=== PATIENT | female | born 1970 | race Caucasian/White ===

== ENCOUNTER → 2018-01-29 | Outpatient (CLI) | payer BC ==
--- NOTE | 2018-01-30 10:59 | MM ---
Reason for exam: screening (asymptomatic). Last mammogram was performed 2 years and 4 months ago. History: Patient is postmenopausal and had first child at age 35. Family history of breast cancer in maternal grandmother at age 70. Took hormonal contraceptives for 22 years beginning at age 16. Physical Findings: A clinical breast exam by your physician is recommended on an annual basis and results should be correlated with mammographic findings. MG 3D Screening Mammo W/Cad Bilateral CC and MLO view(s) were taken. Prior study comparison: September 28, 2015, bilateral MG diagnostic mammo w CAD PROMISE. August 04, 2014, left breast MG work up mamm w CAD LT. The breast tissue is heterogeneously dense. This may lower the sensitivity of mammography. There is no discrete abnormality. No significant changes when compared with prior studies. ASSESSMENT: Negative, BI-RAD 1 RECOMMENDATION: Routine screening mammogram of both breasts in 1 year.
== END ==
LOC: RADMAMWWP 09:58
PROVIDERS: ATTEND Family Medicine
DX: Z12.31 Encounter for screening mammogram for malignant neoplasm of breast (principal)
CPT/HCPCS: 77063; 77067

== ENCOUNTER 2019-07-12 10:02 | Observation (INO) | payer BC ==
[2019-07-12] MEDS ORDERED: ASPIRIN 81 MG PO STA (10:40)
--- NOTE | 2019-07-12 10:44 | ED ---
General Adult HPI - General Chief complaint: Chest Pain Stated complaint: chest pain/sent by pcp Time Seen by Provider: 07/12/19 10:26 Source: patient, RN notes reviewed, old records reviewed Mode of arrival: wheelchair Limitations: no limitations - History of Present Illness Initial comments: 49-year-old female patient past medical history significant for mitral valve prolapse from CDU acute complaint chest pain. Patient process exam this morning she woke up with a substernal pressure. Patient also reports that this chest pain is pleuritic in nature and that it hurts and she takes a deep breath. Patient reports that the chest pain has resolved. She still some discomfort with a deep breath. Denies any shortness of breath. At time of evaluation pain has resolved. Patient denies any other complaints at this time. Systemic: Pt denies fatigue, fever/chills, rash. Pt denies weakness, night sweats, weight loss. Neuro: Pt denies headache, visual disturbances, syncope or pre-syncope. HEENT: Pt denies ocular discharge or irritation, otalgia, rhinorrhea, pharyngitis or notable lymphadenopathy. Cardiopulmonary: Pt denies SOB, heart palpitations, dyspnea on exertion. Abdominal/GI: Pt denies abdominal pain, n/v/d. : Pt denies dysuria, burning w/ urination, frequency/urgency. Denies new onset urinary or bowel incontinence. MSK: Pt denies myalgia, loss of strength or function in extremities. Neuro: Pt denies new onset weakness, paresthesias. - Related Data Home Medications Medication Instructions Recorded Confirmed Cetirizine HCl [Zyrtec] 10 mg PO DAILY 11/10/14 07/12/19 FLUoxetine HCL [Fluoxetine HCl] 20 mg PO QAM 11/10/14 07/12/19 SUMAtriptan SUCCINATE [Sumatriptan 100 mg PO DIRECTED PRN 11/10/14 07/12/19 Succinate] Topiramate 100 mg PO BID 11/10/14 07/12/19 Biotin 10,000 mcg PO DAILY 07/12/19 07/12/19 Erenumab-Aooe [Aimovig 70 mg SQ Q30D 07/12/19 07/12/19 Autoinjector] L.acidoph,Paracasei, B.lactis 1 cap PO DAILY 06/01/20 06/01/20 [Probiotic] Levothyroxine Sodium [Synthroid] 50 mcg PO DAILY 07/12/19 07/12/19 Linaclotide [Linzess] 290 mcg PO DAILY 07/12/19 07/12/19 Ondansetron [Zofran] 8 mg PO BID PRN 07/12/19 07/12/19 Allergies Allergy/AdvReac Type Severity Reaction Status Date / Time No Known Allergies Allergy Verified 07/12/19 10:16 Review of Systems ROS Statement: Those systems with pertinent positive or pertinent negative responses have been documented in the HPI. ROS Other: All systems not noted in ROS Statement are negative. Past Medical History Past Medical History: Mitral Valve Prolapse (MVP) Additional Past Medical History / Comment(s): MIGRAINES,CONSTIPATION,URINARY LEAKAGE,HX POLYPS History of Any Multi-Drug Resistant Organisms: None Reported Past Surgical History: Adenoidectomy Additional Past Surgical History / Comment(s): TURBINATE REDUCTION,IUD PRESENT, COLONOSCOPY Past Anesthesia/Blood Transfusion Reactions: Motion Sickness Smoking Status: Never smoker Past Alcohol Use History: None Reported - Past Family History Mother Additional Family Medical History / Comment(s): CROHN'S/COLITIS,ARTHRITIS,EMPHYSEMA Father Additional Family Medical History / Comment(s): LIVER DISEASE,HEART DISEASE-MULT STENTS,PACEMAKER Brother(s) Family Medical History: Diabetes Mellitus Additional Family Medical History / Comment(s): IBS General Exam - General Exam Comments Initial Comments: Constitutional: NAD, AOX3, Pt has pleasant affect. HEENT: NC/AT, trachea midline, neck supple. External ears appear normal, without discharge. Mucous membranes moist. Eyes PERRLA. There is no scleral icterus. No pallor noted. Cardiopulmonary: RRR, no murmurs, rubs or gallops, no JVD noted. Lungs CTAB in anterior and posterior vang. No peripheral edema. Abdominal exam: Abdomen soft and non-distended. Abdomen non-tender to palpation in all 4 quadrants. Bowel sounds active in LLQ. No hepatosplenomegaly. No ecchymosis Neuro: CN II-XII grossly intact. No nuchal rigidity. No raccon eyes, no yañez sign, no hemotympanum. MSK: No posterior calf tenderness bilaterally, homans sign negative bilaterally. Posterior tibialis and radial pulse +2 bilaterally. Sensation intact in upper a nd lower extremities. Full active ROM in upper and lower extremities, 5/5 stregnth. Limitations: no limitations Course Vital Signs 07/12/19 07/12/19 07/12/19 10:13 10:25 10:30 Temperature 98.2 F Pulse Rate 81 77 Respiratory 16 22 23 Rate Blood Pressure 148/98 142/102 O2 Sat by Pulse 98 97 95 Oximetry 07/12/19 07/12/19 07/12/19 10:40 10:50 11:00 Temperature Pulse Rate 70 73 73 Respiratory 21 21 20 Rate Blood Pressure 142/89 142/89 142/89 O2 Sat by Pulse 98 97 96 Oximetry 07/12/19 07/12/19 07/12/19 11:10 11:20 11:30 Temperature Pulse Rate 79 68 69 Respiratory 20 17 17 Rate Blood Pressure 141/95 141/95 141/95 O2 Sat by Pulse 96 99 97 Oximetry 07/12/19 07/12/19 07/12/19 11:40 13:30 14:00 Temperature Pulse Rate 70 73 72 Respiratory 11 L 24 21 Rate Blood Pressure 148/92 138/97 O2 Sat by Pulse 98 99 98 Oximetry 07/12/19 07/12/19 07/12/19 14:30 15:00 15:16 Temperature Pulse Rate 84 77 77 Respiratory 9 L 20 20 Rate Blood Pressure 145/89 155/95 155/95 O2 Sat by Pulse 98 98 Oximetry Medical Decision Making - Medical Decision Making 49-year-old female patient past medical history significant for mitral valve prolapse from CDU acute complaint chest pain. Patient process exam this morning she woke up with a substernal pressure. Patient also reports that this chest pain is pleuritic in nature and that it hurts and she takes a deep breath. Patient reports that the chest pain has resolved. She still some discomfort w ith a deep breath. Denies any shortness of breath. At time of evaluation pain has resolved. Patient denies any other complaints at this time. Patient vital signs are stable, afebrile. Physical exam also acute pathology. Laboratory investigations are unremarkable. D-dimer is negative. Troponin is negative. Patient didn't have a brief episode of some chest pressure EKG was repeated and is unchanged. Patient is pain-free at time of admission. Will be admitted for serial troponins and cardiology evaluation. Dr. Gonzales accepts patient. Case discussed with Dr. Castro. - Lab Data Result diagrams: 07/12/19 11:07 07/12/19 11:07 Lab Results 07/12/19 07/12/19 07/12/19 Range/Units 11:07 11:07 11:07 WBC 9.1 (3.8-10.6) k/uL RBC 4.76 (3.80-5.40) m/uL Hgb 14.1 (11.4-16.0) gm/dL Hct 44.1 (34.0-46.0) % MCV 92.7 (80.0-100.0) fL MCH 29.6 (25.0-35.0) pg MCHC 31.9 (31.0-37.0) g/dL RDW 12.0 (11.5-15.5) % Plt Count 207 (150-450) k/uL Neutrophils % 72 % Lymphocytes % 19 % Monocytes % 6 % Eosinophils % 2 % Basophils % 0 % Neutrophils # 6.6 (1.3-7.7) k/uL Lymphocytes # 1.7 (1.0-4.8) k/uL Monocytes # 0.5 (0-1.0) k/uL Eosinophils # 0.2 (0-0.7) k/uL Basophils # 0.0 (0-0.2) k/uL PT 9.6 (9.0-12.0) sec INR 0.9 (<1.2) APTT 23.9 (22.0-30.0) sec D-Dimer 0.32 (<0.60) mg/L FEU Sodium 139 (137-145) mmol/L Potassium 5.0 (3.5-5.1) mmol/L Chloride 109 H (98-107) mmol/L Carbon Dioxide 23 (22-30) mmol/L Anion Gap 7 mmol/L BUN 11 (7-17) mg/dL Creatinine 0.86 (0.52-1.04) mg/dL Est GFR (CKD-EPI)AfAm >90 (>60 ml/min/1.73 sqM) Est GFR (CKD-EPI)NonAf 79 (>60 ml/min/1.73 sqM) Glucose 81 (74-99) mg/dL Calcium 9.4 (8.4-10.2) mg/dL Magnesium 2.1 (1.6-2.3) mg/dL Total Bilirubin 0.4 (0.2-1.3) mg/dL AST 24 (14-36) U/L ALT 15 (4-34) U/L Alkaline Phosphatase 70 (38-126) U/L Troponin I (0.000-0.034) ng/mL NT-Pro-B Natriuret Pep pg/mL Total Protein 7.4 (6.3-8.2) g/dL Albumin 4.3 (3.5-5.0) g/dL 07/12/19 07/12/19 Range/Units 11:07 11:07 WBC (3.8-10.6) k/uL RBC (3.80-5.40) m/uL Hgb (11.4-16.0) gm/dL Hct (34.0-46.0) % MCV (80.0-100.0) fL MCH (25.0-35.0) pg MCHC (31.0-37.0) g/dL RDW (11.5-15.5) % Plt Count (150-450) k/uL Neutrophils % % Lymphocytes % % Monocytes % % Eosinophils % % Basophils % % Neutrophils # (1.3-7.7) k/uL Lymphocytes # (1.0-4.8) k/uL Monocytes # (0-1.0) k/uL Eosinophils # (0-0.7) k/uL Basophils # (0-0.2) k/uL PT (9.0-12.0) sec INR (<1.2) APTT (22.0-30.0) sec D-Dimer (<0.60) mg/L FEU Sodium (137-145) mmol/L Potassium (3.5-5.1) mmol/L Chloride (98-107) mmol/L Carbon Dioxide (22-30) mmol/L Anion Gap mmol/L BUN (7-17) mg/dL Creatinine (0.52-1.04) mg/dL Est GFR (CKD-EPI)AfAm (>60 ml/min/1.73 sqM) Est GFR (CKD-EPI)NonAf (>60 ml/min/1.73 sqM) Glucose (74-99) mg/dL Calcium (8.4-10.2) mg/dL Magnesium (1.6-2.3) mg/dL Total Bilirubin (0.2-1.3) mg/dL AST (14-36) U/L ALT (4-34) U/L Alkaline Phosphatase (38-126) U/L Troponin I <0.012 (0.000-0.034) ng/mL NT-Pro-B Natriuret Pep 45 pg/mL Total Protein (6.3-8.2) g/dL Albumin (3.5-5.0) g/dL - EKG Data -: EKG Interpreted by Me (and Dr. Castro ) EKG Comments: 1) ventricular rate 73, when necessary: 64, QRS 82, QT/QTc 4/445. NSR, normal EKG, no concern for acute ischemia. 2) ventricular rate 69, UT interval 186, QRS 80, QT/QTc 48/437. NSR, normal EKG, no concern for acute ischemia. Disposition Clinical Impression: Chest pain Disposition: ADMITTED IP TO THIS HOSP Condition: Fair Is patient prescribed a controlled substance at d/c from ED?: No Referrals: Toan Gomez MD [Primary Care Provider] - 1-2 days
[2019-07-12 11:26] LABS: Basophils % (A) 0 %; Eosinophils # (A) 0.2 k/uL (0-0.7); Eosinophils % (A) 2 %; HCT 44.1 % (34.0-46.0); HGB 14.1 gm/dL (11.4-16.0); Lymphocytes # (A) 1.7 k/uL (1.0-4.8); Lymphocytes % (A) 19 %; MCH 29.6 pg (25.0-35.0); MCHC 31.9 g/dL (31.0-37.0); MCV 92.7 fL (80.0-100.0); Mean Platelet Volume 8.8; Monocytes # (A) 0.5 k/uL (0-1.0); Monocytes % (A) 6 %; Neutrophils # (A) 6.6 k/uL (1.3-7.7); Neutrophils % (A) 72 %; Platelet Count 207 k/uL (150-450); RBC 4.76 m/uL (3.80-5.40); WBC 9.1 k/uL (3.8-10.6)
[2019-07-12 11:42] LABS: ALT 15 U/L (4-34); AST 24 U/L (14-36); African American GFR (CKD) >90 (>60 ml/min/1.73 sqM); Albumin 4.3 g/dL (3.5-5.0); Alkaline Phosphatase 70 U/L (38-126); Anion Gap 7 mmol/L; Blood Urea Nitrogen 11 mg/dL (7-17); Calcium 9.4 mg/dL (8.4-10.2); Carbon Dioxide 23 mmol/L (22-30); Chloride 109 mmol/L (98-107); Glucose 81 mg/dL (74-99); Magnesium 2.1 mg/dL (1.6-2.3); Non-African American GFR(CKD) 79 (>60 ml/min/1.73 sqM); Sodium 139 mmol/L (137-145); Total Bilirubin 0.4 mg/dL (0.2-1.3); Total Protein 7.4 g/dL (6.3-8.2)
--- NOTE | 2019-07-12 11:53 | XR ---
EXAMINATION TYPE: XR chest 2V DATE OF EXAM: 07/12/2019 COMPARISON: NONE HISTORY: Chest pain since this morning. TECHNIQUE: Frontal and lateral views of the chest are obtained. FINDINGS: Overlying EKG leads are seen. There is no focal air space opacity, pleural effusion, or pne umothorax seen. The cardiac silhouette size is within normal limits. The osseous structures are in tact. IMPRESSION: No acute process.
[2019-07-12 11:54] LABS: D-Dimer 0.32 mg/L FEU (<0.60); INR 0.9 (<1.2); Partial Thromboplastin Time 23.9 sec (22.0-30.0); Prothrombin Time 9.6 sec (9.0-12.0)
[2019-07-12] MEDS ORDERED: NITROGLYCERIN SL TABS 0.4 MG TAB SUBLINGUAL STA (13:23)
[2019-07-12] MEDS ORDERED: NITROGLYCERIN SL TABS 0.4 MG TAB SUBLINGUAL PRN (15:36)
[2019-07-12] MEDS ORDERED: SUMAtriptan SUCCINATE 50 MG TAB PO PRN (17:11)
[2019-07-12] MEDS ORDERED: ONDANSETRON 4 MG TAB PO PRN (17:11)
[2019-07-12] MEDS: TOPIRAMATE 100 MG TAB PO SCH (21:11)
--- NOTE | 2019-07-12 21:25 | P.HPIM ---
History of Present Illness H&P Date: 07/12/19 Chief Complaint: Chest pressure History of presenting open: This is a very pleasant 49-year-old patient of Dr. Gomez. Chronic stable medical conditions include much valve prolapse, chronic urinary incontinence, depression, hypothyroid with goiter. Patient woke up this morning and felt a pressure-like sensation all across the upper chest. It went up to her neck. Is present most of the day. No fever no chills. No dizziness no lightheadedness. No shortness of breath. No perspiration. Presented here to rule out a cardiac cause. Denied any swelling of the legs. Initially was having slight difficulty taking a deep breath. No prior cardiac history. Patient fairly active. Review of systems: GEN.: None EYES: None HEENT: Goiter NECK: Goiter RESPIRATORY: None CARDIOVASCULAR: As above GASTROINTESTINAL: Reflux] GENITOURINARY: None MUSCULOSKELETAL: None LYMPHATICS: None HEMATOLOGICAL: None PSYCHIATRY: Anxious NEUROLOGICAL: None Past medical history to include: mitral valve prolapse, urinary incontinence, depression, hypothyroid, goiter Social history: Does not smoke or drink alcohol. . Homemaker Physical examination: VITAL SIGNS: 97, 79, 18, 1 6479, 95% on room air GENERAL: BMI is 26, laying in bed, comfortable. EYES: Pupils equal. Conjunctiva normal. HEENT: External appearance of nose and ears normal, oral cavity grossly normal. NECK: JVD not raised; masses not palpable. HEART: First and second heart sounds are normal; no edema. LUNGS: Respiratory rate normal; clear to auscultation. ABDOMEN: Soft, nontender, liver spleen not palpable, no masses palpable. PSYCH: Alert and oriented x3; mood and affect normal. MUSCULOSKELETAL: No local tenderness, not reproducible NEUROLOGICAL: Cranial nerves grossly intact; no facial asymmetry, power and sensation grossly intact. LYMPHATICS: No lymph nodes palpable in the axilla and neck INVESTIGATIONS, reviewed in the clinical context: White count 9.1 hemoglobin 14.1 platelets 207 potassium 5 creatinine 0.86 Troponin I 2 negative proBNP 45 d-dimer 0.3 to EKG tracing personally reviewed by me-normal sinus rhythm Chest x-ray film personally reviewed by me-lung vang clear Assessment: -This patient presents with upper chest pressure. Other cardiac symptoms. EKG is unremarkable with normal troponins. Somewhat atypical for cardiac but needs to rule out the same. Patient is has a fairly good exercise tolerance. -Chronic urinary incontinence -Depression otherwise specified -Hypothyroid with goiter Plan: Patient will need a stress test tomorrow. Home medications can be resumed. Care was discussed with the patient question were answered. Cardiology is consulted. Past Medical History Past Medical History: Mitral Valve Prolapse (MVP) Additional Past Medical History / Comment(s): MIGRAINES,CONSTIPATION,URINARY LEAKAGE,HX POLYPS History of Any Multi-Drug Resistant Organisms: None Reported Past Surgical History: Adenoidectomy Additional Past Surgical History / Comment(s): TURBINATE REDUCTION,IUD PRESENT, COLONOSCOPY Past Anesthesia/Blood Transfusion Reactions: Motion Sickness Past Psychological History: Depression Smoking Status: Never smoker Past Alcohol Use History: None Reported Past Drug Use History: None Reported - Past Family History Mother Additional Family Medical History / Comment(s): CROHN'S/COLITIS,ARTHRITIS,EMPHYSEMA Father Additional Family Medical History / Comment(s): LIVER DISEASE,HEART DISEASE-MULT STENTS,PACEMAKER Brother(s) Family Medical History: Diabetes Mellitus Additional Family Medical History / Comment(s): IBS Medications and Allergies Home Medications Medication Instructions Recorded Confirmed Type Cetirizine HCl [Zyrtec] 10 mg PO DAILY 11/10/14 07/12/19 History FLUoxetine HCL [Fluoxetine HCl] 20 mg PO QAM 11/10/14 07/12/19 History SUMAtriptan SUCCINATE [Sumatriptan 100 mg PO DIRECTED PRN 11/10/14 07/12/19 History Succinate] Topiramate 100 mg PO BID 11/10/14 07/12/19 History Biotin 10,000 mcg PO DAILY 07/12/19 07/12/19 History Erenumab-Aooe [Aimovig 70 mg SQ Q30D 07/12/19 07/12/19 History Autoinjector] L.acidoph,Paracasei, B.lactis 1 cap PO DAILY 07/12/19 07/12/19 History [Probiotic] Levothyroxine Sodium [Synthroid] 50 mcg PO DAILY 07/12/19 07/12/19 History Linaclotide [Linzess] 290 mcg PO DAILY 07/12/19 07/12/19 History Ondansetron [Zofran] 8 mg PO BID PRN 07/12/19 07/12/19 History Allergies Allergy/AdvReac Type Severity Reaction Status Date / Time No Known Allergies Allergy Verified 07/12/19 10:16 Physical Exam Vitals: Vital Signs Temp Pulse Pulse Resp BP BP Pulse Ox 07/12/19 19:40 97.0 F L 79 18 164/79 95 07/12/19 17:00 98.7 F 81 18 139/86 98 07/12/19 16:37 98.2 F 77 20 155/95 98 07/12/19 15:16 77 20 155/95 98 07/12/19 15:00 77 20 155/95 98 07/12/19 14:30 84 9 L 145/89 07/12/19 14:00 72 21 138/97 98 07/12/19 13:30 73 24 148/92 99 07/12/19 11:40 70 11 L 98 07/12/19 11:30 69 17 141/95 97 07/12/19 11:20 68 17 141/95 99 07/12/19 11:10 79 20 141/95 96 07/12/19 11:00 73 20 142/89 96 07/12/19 10:50 73 21 142/89 97 07/12/19 10:40 70 21 142/89 98 07/12/19 10:30 77 23 142/102 95 07/12/19 10:25 22 97 07/12/19 10:13 98.2 F 81 16 148/98 98 Intake and Output 07/12/19 07/12/19 07/12/19 06:59 14:59 22:59 Other: Weight 66.633 kg 66.633 kg Results CBC & Chem 7: 07/12/19 11:07 07/12/19 11:07 Labs: Abnormal Lab Results - Last 24 Hours (Table) 07/12/19 Range/Units 11:07 Chloride 109 H (98-107) mmol/L Thrombosis Risk Factor Assmnt - Choose All That Apply Any of the Below Risk Factors Present?: Yes Each Factor Represents 1 point: Obesity (BMI >25) Thrombosis Risk Factor Assessment Total Risk Factor Score: 1 Thrombosis Risk Factor Assessment Level: Low Risk
[2019-07-13] MEDS ORDERED: LEVOTHYROXINE 50 MCG TAB PO SCH (06:30)
[2019-07-13 07:00] LABS: Cholesterol 217 mg/dL (<200); HDL Cholesterol 59 mg/dL (40-60); LDL Cholesterol,Calculated 137 mg/dL (0-99); Triglycerides 106 mg/dL (<150)
[2019-07-13 08:20] VITALS: RESP 16; TEMP 98.2
[2019-07-13] MEDS ORDERED: FLUoxetine HCL 20 MG CAP PO SCH (09:00)
[2019-07-13] MEDS ORDERED: ASPIRIN 325 MG TAB PO SCH (09:00)
--- NOTE | 2019-07-13 10:33 | P.CRDCN ---
History of Present Illness History of present illness: HISTORY OF PRESENTING ILLNESS This is a pleasant 49-year-old female with no significant past medical history. We have been asked to see in consultation for chest pain. She states she woke up yesterday morning around 6 AM with a heavy pressure sensation in the midsternal region of her chest anteriorly. The discomfort radiated up into her shoulders bilaterally and around her neck behind both ears. She had no associated shortness of breath, dizziness, palpitations, nausea, vomiting or diaphoresis. She says that she took a deep breath her pain was exacerbated. She took Motrin which did initially give her some relief however her discomfort did return. She was having ongoing chest heaviness when she arrived to the emergency department. EKGs obtained were unremarkable 2. No evidence of ischemic changes. Chest x-ray is negative for an acute cardiopulmonary process. Laboratory data reviewed, cardiac enzymes negative 3, d-dimer 0.32, sodium 139, potassium 5.0, creatinine 0.86, magnesium 2.1, LDL 137 and HDL 59. She does not take any daily cardiac medications. She is currently chest pain-free. REVIEW OF SYSTEMS At the time of my exam: CONSTITUTIONAL: Denies fever or chills. CARDIOVASCULAR: Denies chest pain, shortness of breath, orthopnea, PND or palpitations. RESPIRATORY: Denies cough. GASTROINTESTINAL: Denies abdominal pain, diarrhea, constipation, nausea or vomiting. MUSCULOSKELETAL: Denies myalgias. NEUROLOGIC: Denies numbness, tingling or weakness. ENDOCRINE: Denies fatigue, weight change, polydipsia or polyurina. GENITOURINARY: Denies burning, hematuria or urgency with micturation. HEMATOLOGIC: Denies history of anemia or bleeding. PHYSICAL EXAMINATION Blood pressure 132/86 heart rate 79 afebrile and maintaining oxygen saturation on room air. CONSTITUTIONAL: No apparent distress. HEENT: Head is normocephalic. Pupils are equal, round. Sclerae anicteric. Mucous membranes of the mouth are moist. No JVD. No carotid bruit. CHEST EXAMINATION: Lungs are clear to auscultation. No chest wall tenderness is noted on palpation or with deep breathing. HEART EXAMINATION: Regular rate and rhythm. S1, S2 heard. No murmurs, gallops or rub. ABDOMEN: Soft, nontender. Positive bowel sounds. EXTREMITIES: 2+ peripheral pulses, no lower extremity edema and no calf tenderness. NEUROLOGIC EXAMINATION: Patient is awake, alert and oriented x3. ASSESSMENT Chest pain, atypical. An acute coronary event has been ruled out Dyslipidemia PLAN An acute coronary event has been ruled out. Obtain 2-D echocardiogram and Doppler study to assess cardiac structure and function. Perform stress echocardiogram to assess her stress induced cardiac ischemia. Recommend lifestyle modifications in the form of diet and exercise for lowering of LDL cholesterol of less than 100. If stress test is normal she may be discharged from a cardiac perspective. Thank you kindly for this consultation. Nurse Practitioner note has been reviewed, I agree with a documented findings and plan of care. Patient was seen and examined. Past Medical History Past Medical History: Mitral Valve Prolapse (MVP) Additional Past Medical History / Comment(s): MIGRAINES,CONSTIPATION,URINARY LEAKAGE,HX POLYPS History of Any Multi-Drug Resistant Organisms: None Reported Past Surgical History: Adenoidectomy Additional Past Surgical History / Comment(s): TURBINATE REDUCTION,IUD PRESENT, COLONOSCOPY Past Anesthesia/Blood Transfusion Reactions: Motion Sickness Past Psychological History: Depression Smoking Status: Never smoker Past Alcohol Use History: None Reported Past Drug Use History: None Reported - Past Family History Mother Additional Family Medical History / Comment(s): CROHN'S/COLITIS,ARTHRITIS,EMPHYSEMA Father Additional Family Medical History / Comment(s): LIVER DISEASE,HEART DISEASE-MULT STENTS,PACEMAKER Brother(s) Family Medical History: Diabetes Mellitus Additional Family Medical History / Comment(s): IBS Medications and Allergies Home Medications Medication Instructions Recorded Confirmed Type Cetirizine HCl [Zyrtec] 10 mg PO DAILY 11/10/14 07/12/19 History FLUoxetine HCL [Fluoxetine HCl] 20 mg PO QAM 11/10/14 07/12/19 History SUMAtriptan SUCCINATE [Sumatriptan 100 mg PO DIRECTED PRN 11/10/14 07/12/19 History Succinate] Topiramate 100 mg PO BID 11/10/14 07/12/19 History Biotin 10,000 mcg PO DAILY 07/12/19 07/12/19 History Erenumab-Aooe [Aimovig 70 mg SQ Q30D 07/12/19 07/12/19 History Autoinjector] L.acidoph,Paracasei, B.lactis 1 cap PO DAILY 07/12/19 07/12/19 History [Probiotic] Levothyroxine Sodium [Synthroid] 50 mcg PO DAILY 07/12/19 07/12/19 History Linaclotide [Linzess] 290 mcg PO DAILY 07/12/19 07/12/19 History Ondansetron [Zofran] 8 mg PO BID PRN 07/12/19 07/12/19 History Allergies Allergy/AdvReac Type Severity Reaction Status Date / Time No Known Allergies Allergy Verified 07/12/19 10:16 Physical Exam Vitals: Vital Signs Temp Pulse Pulse Resp BP BP Pulse Ox 07/13/19 08:00 98.2 F 79 16 132/86 97 07/13/19 04:00 98.3 F 77 19 128/82 96 07/13/19 03:30 77 19 07/12/19 23:30 97.7 F 77 15 123/57 95 07/12/19 19:40 97.0 F L 79 18 164/79 95 07/12/19 17:00 98.7 F 81 18 139/86 98 07/12/19 16:37 98.2 F 77 20 155/95 98 07/12/19 15:16 77 20 155/95 98 07/12/19 15:00 77 20 155/95 98 07/12/19 14:30 84 9 L 145/89 07/12/19 14:00 72 21 138/97 98 07/12/19 13:30 73 24 148/92 99 07/12/19 11:40 70 11 L 98 07/12/19 11:30 69 17 141/95 97 07/12/19 11:20 68 17 141/95 99 07/12/19 11:10 79 20 141/95 96 07/12/19 11:00 73 20 142/89 96 07/12/19 10:50 73 21 142/89 97 07/12/19 10:40 70 21 142/89 98 07/12/19 10:30 77 23 142/102 95 07/12/19 10:25 22 97 07/12/19 10:13 98.2 F 81 16 148/98 98 Intake and Output 07/12/19 07/13/19 07/13/19 22:59 06:59 14:59 Intake Total 240 Balance 240 Intake: Oral 240 Other: # Voids 1 Weight 66.633 kg Results 07/12/19 11:07 07/12/19 11:07 Cardiac Enzymes 07/12/19 07/12/19 07/12/19 Range/Units 11:07 11:07 17:06 AST 24 (14-36) U/L Troponin I <0.012 <0.012 (0.000-0.034) ng/mL 07/12/19 Range/Units 22:23 AST (14-36) U/L Troponin I <0.012 (0.000-0.034) ng/mL Coagulation 07/12/19 Range/Units 11:07 PT 9.6 (9.0-12.0) sec APTT 23.9 (22.0-30.0) sec Lipids 07/13/19 Range/Units 06:28 Triglycerides 106 (<150) mg/dL Cholesterol 217 H (<200) mg/dL HDL Cholesterol 59 (40-60) mg/dL CBC 07/12/19 Range/Units 11:07 WBC 9.1 (3.8-10.6) k/uL RBC 4.76 (3.80-5.40) m/uL Hgb 14.1 (11.4-16.0) gm/dL Hct 44.1 (34.0-46.0) % Plt Count 207 (150-450) k/uL Comprehensive Metabolic Panel 07/12/19 Range/Units 11:07 Sodium 139 (137-145) mmol/L Potassium 5.0 (3.5-5.1) mmol/L Chloride 109 H (98-107) mmol/L Carbon Dioxide 23 (22-30) mmol/L BUN 11 (7-17) mg/dL Creatinine 0.86 (0.52-1.04) mg/dL Glucose 81 (74-99) mg/dL Calcium 9.4 (8.4-10.2) mg/dL AST 24 (14-36) U/L ALT 15 (4-34) U/L Alkaline Phosphatase 70 (38-126) U/L Total Protein 7.4 (6.3-8.2) g/dL Albumin 4.3 (3.5-5.0) g/dL Current Medications Generic Name Dose Route Start Last Admin Trade Name Freq PRN Reason Stop Dose Admin Aspirin 325 mg 07/13/19 09:00 Aspirin PO DAILY AMINTA Fluoxetine HCl 20 mg 07/13/19 09:00 Prozac PO QAM AMINTA Levothyroxine Sodium 50 mcg 07/13/19 06:30 07/13/19 07:08 Synthroid PO 50 mcg 0630 AMINTA Administration Nitroglycerin 0.4 mg 07/12/19 15:36 Nitrostat SUBLINGUAL Q5M PRN Chest Pain Linzess (Linaclotide 290 mcg 07/13/19 09:00 ) 290 Mcg PO DAILY AMINTA Ondansetron HCl 8 mg 07/12/19 17:11 Zofran PO BID PRN Nausea Sumatriptan Succinate 100 mg 07/12/19 17:11 Imitrex PO DAILY PRN MIGRAINES Topiramate 100 mg 07/12/19 21:00 07/12/19 21:11 Topamax PO 100 mg BID AMINTA Administration Intake and Output 07/12/19 07/13/19 07/13/19 22:59 06:59 14:59 Intake Total 240 Balance 240 Intake: Oral 240 Other: # Voids 1 Weight 66.633 kg 07/12/19 11:07 07/12/19 11:07
[2019-07-13] MEDS: TOPIRAMATE 100 MG TAB PO SCH (11:59)
[2019-07-13 12:01] VITALS: BP 133/89; PULSE 88
--- NOTE | 2019-07-13 13:54 | P.STRESS ---
- Stress Test Note Stress Test Results/Findings: Exam Performed: stress echo exercise Exam Date: 07/13/19 Reason for Exam: CP Height: 5 ft 3 in Weight: 66.63 kg Protocol: STRESS ECHO Stage: 3 Duration of Exercise: 9:00 Resting Heart Rate: 88 Resting Blood Pressure: 152/98 Maximum Achieved Heart Rate: 153 Maximum Achieved Blood Pressure: 211/73 85% PMHR: 144 100% PMHR: 169 METS: 10.3 Technologist Comment: Stress Test Results/Findings: Baseline heart rate 88 beats a minute, Baseline blood pressure 152/90 mmHg Baseline twelve-lead ECG shows normal sinus rhythm with normal cardiac intervals Patient exercised on a Sameer protocol for 9 minutes achieving a peak heart rate of 153 beats a minute. Peak blood pressure 211/73 mmHg There is no ECG evidence for ischemia No arrhythmias are noted Baseline 2-D echo showed normal LV systolic function without segmental wall motion abnormalities At peak exercise. His excellent augmentation of overall and contractility without rebound motion amenities At recovery revealed normal LV systolic function with normal Impression good exercise capacity Elevated blood pressure readings during exercise No ECG or echocardiographic evidence for ischemia no arrhythmias
--- NOTE | 2019-07-13 13:59 | ECHOF ---
Referral Reason:cp, pleuritic MEASUREMENTS -------- HEIGHT: 160.0 cm WEIGHT: 68.0 kg BP: IVSd: 1.2 cm (0.6 - 1.1) LVIDd: 2.9 cm (3.9 - 5.3) LVPWd: 1.4 cm (0.6 - 1.1) IVSs: 1.7 cm LVIDs: 1.4 cm LVPWs: 1.8 cm RVIDd: 2.9 cm (< 3.3) Ao Diam: 2.8 cm (2.0 - 3.7) LA Diam: 2.7 cm (2.7 - 3.8) AV Cusp: 2.1 cm (1.5 - 2.6) EPSS: 0.4 cm MV E Sameer: 0.71 m/s MV DecT: 148 ms MV A Sameer: 0.92 m/s MV E/A Ratio: 0.77 RAP: 5.00 mmHg RVSP: 14.21 mmHg MV EF SLOPE: 66.28 mm/s (70 - 150) MV EXCURSION: 11.35 mm (> 18.000) FINDINGS -------- Sinus rhythm. This was a technically adequate study. The left ventricular size is normal. There is mild concentric left ventricular hypertrophy. Overa ll left ventricular systolic function is normal with, an EF between 55 - 60 %. The right ventricle is normal in size. The left atrial size is normal. The right atrial size is normal. Interatrial and interventricular septum intact. The aortic valve is trileaflet and appears structurally normal. The mitral valve is normal. There is trace mitral regurgitation. The tricuspid valve appears structurally normal. Trace tricuspid regurgitation present. Right inocencia tricular systolic pressure is normal at < 35 mmHg. There is no pulmonic regurgitation present. The aortic root size is normal. Normal inferior vena cava with normal inspiratory collapse consistent with estimated right atrial pre ssure of 5 mmHg. There is no pericardial effusion. CONCLUSIONS -------- 1. Sinus rhythm. 2. This was a technically adequate study. 3. The left ventricular size is normal. 4. There is mild concentric left ventricular hypertrophy. 5. Overall left ventricular systolic function is normal with, an EF between 55 - 60 %. 6. The right ventricle is normal in size. 7. The left atrial size is normal. 8. The right atrial size is normal. 9. Interatrial and interventricular septum intact. 10. The aortic valve is trileaflet and appears structurally normal. 11. The mitral valve is normal. 12. There is trace mitral regurgitation. 13. The tricuspid valve appears structurally normal. 14. Trace tricuspid regurgitation present. 15. Right ventricular systolic pressure is normal at < 35 mmHg. 16. There is no pulmonic regurgitation present. 17. The aortic root size is normal. 18. Normal inferior vena cava with normal inspiratory collapse consistent with estimated right atrial pressure of 5 mmHg. 19. There is no pericardial effusion. DEBT COLLECTOR: Clau Iraheta RDCS
[2019-07-14] MEDS ORDERED: ASPIRIN 81 MG PO SCH (09:00)
--- NOTE | 2019-07-14 20:56 | P.DS ---
Providers Date of admission: 07/12/19 15:59 Expected date of discharge: 07/13/19 Attending physician: Abrahan Gonzales Consults: 07/12/19 15:37 Consult Physician Urgent Consulting Provider: Scotty Caro Consult Reason/Comments: chest pain Do you want consulting provider notified?: Yes [facility] Course: Chief Complaint: Chest pressure History of presenting open: This is a very pleasant 49-year-old patient of Dr. Gomez. Chronic stable medical conditions include much valve prolapse, chronic urinary incontinence, depression, hypothyroid with goiter. Patient woke up this morning and felt a pressure-like sensation all across the upper chest. It went up to her neck. Is present most of the day. No fever no chills. No dizziness no lightheadedness. No shortness of breath. No perspiration. Presented here to rule out a cardiac cause. Denied any swelling of the legs. Initially was having slight difficulty taking a deep breath. No prior cardiac history. Patient fairly active. Stress echocardiogram negative for ischemia. Consultation: Dr. Barrie Santos-cardiology Physical examination: VITAL SIGNS: 98.2, 79, 16, 132/86, 97% on room air GENERAL: BMI is 26, laying in bed, comfortable. EYES: Pupils equal. Conjunctiva normal. HEENT: External appearance of nose and ears normal, oral cavity grossly normal. NECK: JVD not raised; masses not palpable. HEART: First and second heart sounds are normal; no edema. LUNGS: Respiratory rate normal; clear to auscultation. ABDOMEN: Soft, nontender, liver spleen not palpable, no masses palpable. PSYCH: Alert and oriented x3; mood and affect normal. MUSCULOSKELETAL: No local tenderness, not reproducible INVESTIGATIONS, reviewed in the clinical context: White count 9.1 hemoglobin 14.1 platelets 207 potassium 5 creatinine 0.86 Troponin I 2 negative proBNP 45 d-dimer 0.3 to EKG tracing personally reviewed by me-normal sinus rhythm Chest x-ray film personally reviewed by me-lung vang clear 2-D echocardiogram-year 55-60%. No wall motion abnormality. Stress echocardiogram-negative for ischemia LDL 137 COVID-19 PCR-not detected Assessment: -Anterior chest wall pain-possibly musculoskeletal -Chronic urinary incontinence -Depression otherwise specified -Hypothyroid with goiter Disposition: Home Patient Condition at Discharge: Stable Plan - Discharge Summary New Discharge Prescriptions: Continue Topiramate 100 mg PO BID FLUoxetine HCL [Fluoxetine HCl] 20 mg PO QAM Cetirizine HCl [Zyrtec] 10 mg PO DAILY SUMAtriptan SUCCINATE [Sumatriptan Succinate] 100 mg PO DIRECTED PRN PRN Reason: MIGRAINES Ondansetron [Zofran] 8 mg PO BID PRN PRN Reason: Nausea Levothyroxine Sodium [Synthroid] 50 mcg PO DAILY L.acidoph,Paracasei, B.lactis [Probiotic] 1 cap PO DAILY Erenumab-Aooe [Aimovig Autoinjector] 70 mg SQ Q30D Biotin 10,000 mcg PO DAILY Linaclotide [Linzess] 290 mcg PO DAILY Discharge Medication List Cetirizine HCl [Zyrtec] 10 mg PO DAILY 11/10/14 [History] FLUoxetine HCL [Fluoxetine HCl] 20 mg PO QAM 11/10/14 [History] SUMAtriptan SUCCINATE [Sumatriptan Succinate] 100 mg PO DIRECTED PRN 11/10/14 [History] Topiramate 100 mg PO BID 11/10/14 [History] Biotin 10,000 mcg PO DAILY 07/12/19 [History] Erenumab-Aooe [Aimovig Autoinjector] 70 mg SQ Q30D 07/12/19 [History] L.acidoph,Paracasei, B.lactis [Probiotic] 1 cap PO DAILY 07/12/19 [History] Levothyroxine Sodium [Synthroid] 50 mcg PO DAILY 07/12/19 [History] Linaclotide [Linzess] 290 mcg PO DAILY 07/12/19 [History] Ondansetron [Zofran] 8 mg PO BID PRN 07/12/19 [History] Follow up Appointment(s)/Referral(s): Barrie Santos MD [STAFF PHYSICIAN] - 1 Week (the office will call patient with date and time.) Toan Gomez MD [Primary Care Provider] - 1-2 days Patient Instructions/Handouts: Chest Pain (DC) Discharge Disposition: HOME SELF-CARE
== END 2019-07-13 15:38 | disposition home or self-care (01) ==
LOC: EC 10:02 → 1SOBS 15:59
PROVIDERS: ADMIT Hospitalist; ATTEND Hospitalist
DX: R07.89 Other chest pain (principal); I34.1 Nonrheumatic mitral (valve) prolapse; E78.5 Hyperlipidemia, unspecified; G43.909 Migraine, unspecified, not intractable, without status migrainosus; K59.00 Constipation, unspecified; R32 Unspecified urinary incontinence; F32.9 Major depressive disorder, single episode, unspecified; E04.9 Nontoxic goiter, unspecified; E03.9 Hypothyroidism, unspecified; E66.9 Obesity, unspecified; Z68.26 Body mass index [BMI] 26.0-26.9, adult; Z03.818 Encounter for observation for suspected exposure to other biological agents ruled out; Z79.890 Hormone replacement therapy; Z79.899 Other long term (current) drug therapy; Z97.5 Presence of (intrauterine) contraceptive device; Z86.010 Personal history of colon polyps; Z82.5 Family history of asthma and other chronic lower respiratory diseases; Z83.79 Family history of other diseases of the digestive system; Z82.61 Family history of arthritis; Z82.49 Family history of ischemic heart disease and other diseases of the circulatory system; Z83.3 Family history of diabetes mellitus
CPT/HCPCS: 99285; 36415; 93005 ×2; 93306; 93351; 85379; 83880; 80061; 80053; 83735; 84484; 85025; 85610; 85730; 71046; G0378 ×2; U0003

== ENCOUNTER → 2020-10-11 | Outpatient (CLI) | payer BC ==
--- NOTE | 2020-10-12 09:25 | MM ---
Reason for exam: screening (asymptomatic). Last mammogram was performed 2 years and 8 months ago. History: Patient is postmenopausal and had first child at age 35. Family history of breast cancer in maternal grandmother at age 70. Took hormonal contraceptives for 22 years beginning at age 16. Physical Findings: A clinical breast exam by your physician is recommended on an annual basis and results should be correlated with mammographic findings. MG 3D Screening Mammo W/Cad Bilateral CC and MLO view(s) were taken. Prior study comparison: January 29, 2018, bilateral MG 3d screening mammo w/cad. September 28, 2015, bilateral MG diagnostic mammo w CAD [facility]. The breast tissue is extremely dense which could obscure a lesion on mammography. There is no discrete abnormality. ASSESSMENT: Negative, BI-RAD 1 RECOMMENDATION: Routine screening mammogram of both breasts in 1 year.
== END | disposition home or self-care (01) ==
LOC: RADMAMWWP 13:17
PROVIDERS: ATTEND Obstetrics & Gynecology
DX: Z12.31 Encounter for screening mammogram for malignant neoplasm of breast (principal); Z78.0 Asymptomatic menopausal state; Z80.3 Family history of malignant neoplasm of breast
CPT/HCPCS: 77063; 77067

== ENCOUNTER → 2021-11-05 | Outpatient (CLI) | payer BC ==
--- NOTE | 2021-11-06 18:02 | MM ---
Reason for Exam: Screening (asymptomatic). Last screening mammogram was performed 12 month(s) ago. Patient History: Menarche at age 11. First Full-Term at age 35. Late child-bearing (after 30). Postmenopausal. Hormonal Contraceptives, starting at age 16 for 22 years. Maternal grandmother had breast cancer, age 70. Risk Values: Nena 5 year model risk: 1.5%. NCI Lifetime model risk: 11.6%. Prior Study Comparison: 09/28/2015 Bilateral Diagnostic Mammogram, [facility]. 01/29/2018 Bilateral Screening Mammogram, [facility]. 10/11/2020 Bilateral Screening Mammogram, [facility]. Tissue Density: The breast tissue is heterogeneously dense. This may lower the sensitivity of mammography. Findings: Analyzed By CAD. Microcalcifications upper outer quadrant left breast remain unchanged. No significant change from prior exams. Overall Assessment: Benign, BI-RAD 2 Management: Screening Mammogram of both breasts in 1 year. 1. Patient should continue monthly self breast exams. 2. A clinical breast exam by your physician is recommended on an annual basis. 3. This exam should not preclude additional follow-up of suspicious palpable abnormalities. Electronically signed and approved by: Kike Coombs M.D. Radiologist
== END | disposition home or self-care (01) ==
LOC: RADMAMWWP 16:12
PROVIDERS: ATTEND Family Medicine
DX: Z12.31 Encounter for screening mammogram for malignant neoplasm of breast (principal); Z80.3 Family history of malignant neoplasm of breast; Z78.0 Asymptomatic menopausal state
CPT/HCPCS: 77063; 77067

== ENCOUNTER 2022-05-03 12:25 | Day surgery (SDC) | payer BC ==
[~2022-05-03 12:25] MED LIST: LACTATED RINGERS 1,000 ML IV SCH; LIDOCAINE 1% (10MG/ML) FOR IV START INTRADERMA PRN
[2022-05-03 13:58] VITALS: RESP 16; TEMP 97.3
[2022-05-03] MEDS ORDERED: KETOROLAC 15 MG/ML 1 ML VIAL ONE (14:21)
[2022-05-03] MEDS ORDERED: KETOROLAC 15 MG/ML 1 ML VIAL IVP ONE (14:22)
[2022-05-03] MEDS ORDERED: PROPOFOL 10 MG/ML 20 ML VIAL IV ONE (14:38)
[2022-05-03] MEDS ORDERED: MIDAZOLAM 2 MG/2 ML VIAL ONE (14:38)
--- NOTE | 2022-05-03 14:53 | P.PCN ---
Date of Procedure: 05/03/22 Procedure(s) Performed: BRIEF HISTORY: Patient is a 52-year-old pleasant white female scheduled for an elective colonoscopy as a part of screening for colon cancer. PROCEDURE PERFORMED: Colonoscopy with biopsy. PREOPERATIVE DIAGNOSIS: Screening for colon cancer. IV sedation per Anesthesia. PROCEDURE: After informed consent was obtained, the patient, was brought into the endoscopy unit. IV sedation was administered by Anesthesia under continuous monitoring. Digital rectal examination was normal. Initially the Olympus CF-160 flexible video colonoscope was then inserted in the rectum, gradually advanced into the cecum without any difficulty. Careful examination was performed as the scope was gradually being withdrawn. Ileocecal valve and the appendiceal orifice were visualized and appeared normal. Prep was excellent. Mucosa of the cecum, ascending colon, transverse colon, descending colon, sigmoid colon, and rectum appeared normal. There was a 3 mm polyp in the proximal rectum that was removed by cold biopsy. Retroflexion was performed in the rectum and no lesions were seen. The patient tolerated the procedure well. IMPRESSION: 3 mm proximal rectal polyp status post cold biopsy Rest of the colon appeared normal RECOMMENDATIONS: Findings of this examination were discussed with the patient as well as a family.. She was advised to have a repeat screening colonoscopy in 10 years.
[2022-05-03] MEDS ORDERED: IV FLUID CONTINUATION 1,000 ML IV ONE (14:58)
[2022-05-03 15:25] VITALS: BP 151/83; PULSE 74
== END 2022-05-03 15:25 | disposition home or self-care (01) ==
LOC: ORWHC2ENDO 12:25
PROVIDERS: ATTEND Internal Medicine Gastroenterology
DX: Z12.11 Encounter for screening for malignant neoplasm of colon (principal); K62.1 Rectal polyp; E03.9 Hypothyroidism, unspecified; K21.9 Gastro-esophageal reflux disease without esophagitis; G43.909 Migraine, unspecified, not intractable, without status migrainosus; Z79.899 Other long term (current) drug therapy
CPT/HCPCS: 81025; 88305; 45380; J2250; J1885; J2704; 45385

== ENCOUNTER → 2023-03-25 | Outpatient (CLI) | payer BC ==
--- NOTE | 2023-03-26 13:36 | MM ---
Reason for Exam: Screening (asymptomatic). Last mammogram was performed 1 year(s) and 5 month(s) ago. Patient History: Menarche at age 11. First Full-Term at age 35. Late child-bearing (after 30). Postmenopausal. Hormonal Contraceptives, starting at age 16 for 22 years. Risk Values: Nena 5 year model risk: 1.6%. NCI Lifetime model risk: 11.4%. Prior Study Comparison: 01/29/2018 Bilateral Screening Mammogram, [facility]. 10/11/2020 Bilateral Screening Mammogram, [facility]. 11/05/2021 Bilateral MG 3D screening mammo w/cad, [facility]. Tissue Density: The breast tissue is heterogeneously dense. This may lower the sensitivity of mammography. Findings: Analyzed By CAD. There is no suspicious group of microcalcifications or new suspicious mass. Overall Assessment: Negative, BI-RAD 1 Management: Screening Mammogram of both breasts in [address] [facility] will attempt to contact patient to return for supplemental views and ultrasound if indicated. Patient should continue monthly self-breast exams. A clinical breast exam by your physician is recommended on an annual basis. This exam should not preclude additional follow-up of suspicious palpable abnormalities. Note on Nena scores and lifetime risk: 1. A Nena score greater than 3% is considered moderate risk. If this is the case, consider specialist referral to assess eligibility for a risk reducing agent. 2. If overall lifetime risk for the development of breast cancer is 20% or higher, the patient may qualify for future screening with alternating mammogram and breast MRI. Electronically signed and approved by: Eder Ramos DO
== END | disposition home or self-care (01) ==
LOC: RADMAMWWP 08:12
PROVIDERS: ATTEND Family Medicine
DX: Z12.31 Encounter for screening mammogram for malignant neoplasm of breast (principal); Z78.0 Asymptomatic menopausal state
CPT/HCPCS: 77063; 77067